=== PATIENT | female | born 1985 | race Two or more races ===

== ENCOUNTER → 2020-10-02 | Emergency (ER) | payer BC, MEDICAID ==
[~2020-10-02] VITALS: Ht 157.5 cm; Wt 90.9 kg
[~2020-10-02] MED LIST: ERYT1OIN6 LEFTEYE; LORA1TAB PO; NO HOME MEDS; erythromycin ophthalmic ointment 1gm tube LEFTEYE ONE; proparacaine 0.5% ophthalmic drops 15ml EACHEYE ONE
[2020-10-02 13:38] VITALS: BP 104/96
== END | disposition home or self-care (01) ==
LOC: ER 10:39
DX: H10.32 Unspecified acute conjunctivitis, left eye (principal); K21.9 Gastro-esophageal reflux disease without esophagitis; Z79.2 Long term (current) use of antibiotics; Z79.899 Other long term (current) drug therapy
CPT/HCPCS: 99283

== ENCOUNTER 2024-05-12 14:28 | Emergency (ER) | payer BC, MEDICAID ==
[~2024-05-12] VITALS: Ht 157.5 cm; Wt 75.0 kg
[~2024-05-12 14:28] MED LIST changes: -ERYT1OIN6 LEFTEYE; -erythromycin ophthalmic ointment 1gm tube LEFTEYE ONE; -proparacaine 0.5% ophthalmic drops 15ml EACHEYE ONE
[2024-05-12 15:23] LABS: BASOPHILS % (AUTO) 0.6 % (0-1); EOSINOPHILS # (AUTO) 0.3 X10'3 (0-0.9); EOSINOPHILS % (AUTO) 5.2 % (0-6); HEMATOCRIT 40.5 % (35.0-45.0); HEMOGLOBIN 13.8 g/dl (12.0-16.0); LYMPHOCYTES # (AUTO) 2.5 X10'3 (1.1-4.8); LYMPHOCYTES % (AUTO) 39.8 % (21-51); MEAN CORPUSCULAR HEMOGLOBIN 30.7 PG (27.0-31.0); MEAN CORPUSCULAR HGB CONC 34.1 g/dL (33.0-36.5); MEAN PLATELET VOLUME 8.3 FL (7.4-10.4); MONOCYTES # (AUTO) 0.4 X10'3 (0-0.9); MONOCYTES % (AUTO) 5.9 % (2-12); NEUTROPHILS # (AUTO) 3.1 X10'3 (1.8-7.7); NEUTROPHILS % (AUTO) 48.5 % (42-75); PLATELET COUNT 249 X10'3 (140-440); RED CELL DISTRIBUTION WIDTH 13.4 % (11.5-14.5); WHITE BLOOD COUNT 6.3 X10'3 (4.5-11.0)
[2024-05-12 15:42] LABS: ALANINE AMINOTRANSFERASE 18 U/L (12-78); ALBUMIN 3.5 G/DL (3.4-5.0); ALBUMIN/GLOBULIN RATIO 0.9 (1.1-1.5); ALKALINE PHOSPHATASE 41 IU/L (46-116); ANION GAP 8 (8-16); ASPARTATE AMINO TRANSFERASE 25 U/L (10-37); BILIRUBIN,TOTAL 0.6 MG/DL (0.1-1.0); BLOOD UREA NITROGEN 14 MG/DL (7-18); CALCIUM 8.5 MG/DL (8.5-10.1); CHLORIDE 105 MMOL/L (99-107); CREATININE 1.08 MG/DL (0.40-0.90); GLUCOSE 139 MG/DL (70-104); LIPASE 76 U/L (16-77); POTASSIUM 3.6 MMOL/L (3.5-5.1); SODIUM 139 MMOL/L (135-145); TOTAL CARBON DIOXIDE 25.9 MMOL/L (24-32); TOTAL PROTEIN 7.6 G/DL (6.4-8.2); eCRCL 54 ML/MIN; eGFR 56 ML/MIN
[2024-05-12] MEDS: morphine 4 MG/ML inj SYRINge IV ONE (19:37)
[2024-05-12] MEDS: ondansetron/PF 4mg/2ml inj IV ONE (19:37)
[2024-05-12] MEDS: normal saline 1000ML IV soln IVB ONE (19:37)
[2024-05-12] MEDS: HYDROcodone/acetaminophen 10/325mg tab PO ONE (19:43)
[2024-05-12] MEDS: ondansetron 4mg rapidly disintigrating tab PO ONE (19:43)
[2024-05-12] MEDS ORDERED: HYDR-3965 PO (19:59)
[2024-05-12 20:39] VITALS: BP 173/98
[2024-05-12] MEDS: LORazepam 0.5 MG tablet PO ONE (20:59)
[2024-05-12 21:17] VITALS: PULSE 92; RESP 15; TEMP 97.7; O2SAT 99
[2024-05-13] MEDS ORDERED: HYDR-3965 PO (10:58)
== END 2024-05-12 21:19 | disposition home or self-care (01) ==
LOC: ER 14:28
DX: R10.11 Right upper quadrant pain (principal); K80.20 Calculus of gallbladder without cholecystitis without obstruction; K21.9 Gastro-esophageal reflux disease without esophagitis
CPT/HCPCS: 36415; 76700; 80053; 83690; 85025; 99284; J7030

== ENCOUNTER 2024-11-19 14:20 | Day surgery (SDC) | payer MEDICAID ==
[2024-11-18 11:08] LABS: MEAN PLATELET VOLUME 8.4 FL (7.4-10.4); PRE OP HEMATOCRIT 43.1 % (35.0-45.0); PRE OP HEMOGLOBIN 15.2 g/dL (12.0-16.0); PRE OP PLATELET COUNT 232 X10'3 (140-440); PRE OP WHITE BLOOD COUNT 6.8 10'3 (4.8-10.8); RED CELL DISTRIBUTION WIDTH 13.9 % (11.5-14.5)
[2024-11-18 11:23] LABS: CREATININE 1.19 MG/DL (0.40-0.90); PRE OP ANION GAP 12 (8-16); PRE OP BILIRUB, TOTAL 0.4 MG/DL (0.0-1.0); PRE OP SODIUM 138 MMOL/L (135-145); TOTAL CARBON DIOXIDE 26.4 MMOL/L (24-32); eGFR 50 ML/MIN
[2024-11-18 11:26] LABS: PRE OP POTASSIUM 4.1 MMOL/L (3.4-5.1)
[2024-11-18 11:29] LABS: PRE OP GLUCOSE 330 MG/DL (70-104)
[2024-11-18 11:35] LABS: PRE OP ALT 13 U/L (30-65); PRE OP AST 16 U/L (10-37)
[~2024-11-19] VITALS: Ht 157.5 cm; Wt 73.8 kg
[2024-11-19] VITALS (12 sets, daily range): BP systolic 110–145; BP diastolic 78–94; PULSE 64–86; RESP 15–19; TEMP 98.1; O2SAT 91–99
[2024-11-19] MEDS: ceFAZolin 2gm/dext,iso 50mL 50 ML IV ONE (05:30)
[~2024-11-19 14:20] MED LIST changes: +BUPR-122 PO; +DULO30CA52 PO; +EMPA10TA PO; +LIDO700A47 TOP; -LORA1TAB PO; -NO HOME MEDS; +ROSU10TA72 PO
[2024-11-19] MEDS: INDOCYANINE GREEN 25 MG/10 ML VIAL IV ONE (14:39)
[2024-11-19] MEDS: ringers solution, lacted 1,000 ML IV SCH (14:40)
[2024-11-19] MEDS ORDERED: insulin regular, human U-100 10ml vial - multi-dose IV ONE (15:10)
[2024-11-19] MEDS: insulin regular, human 10 units/0.1 ml syringe IV ONE (15:26)
[2024-11-19] MEDS ORDERED: fentaNYL/PF 50MCG/1 ML 2ML syringe IV PRN ×2 (15:55)
[2024-11-19] MEDS ORDERED: hydrALAZINE 20mg/ml inj. IV PRN (15:55)
[2024-11-19] MEDS ORDERED: ringers solution, lacted 1,000 ML IV SCH (15:55)
[2024-11-19] MEDS ORDERED: labetalol 20mg/4ml (5mg/ml) syringe IV PRN (15:55)
[2024-11-19] MEDS ORDERED: morphine 4 MG/ML inj SYRINge IV PRN (15:55)
[2024-11-19] MEDS ORDERED: ondansetron/PF 4mg/2ml inj IV PRN (15:55)
--- NOTE | 2024-11-19 16:53 | HISTORY AND PHYSICAL ---
History & Physical Providers to CC ~ History of Present Illness Reason for Admit\Complaint: Getting my gallbladder out History of Present Illness 39-year-old female with a three-month history of chronic epigastric and right upper quadrant abdominal pain, exacerbated by eating. Fatty food intolerance Pain radiating to her right scapula Chronic, constant bloating with nausea She has been to the emergency room and documented as having cholelithiasis She is hoping to schedule urgent surgery Denies any dark urine or marija-colored stool No jaundice Active abdominal pain today Allergies: Coded Allergies: No Known Allergies (Unverified , 10/23/11) Home Medications Home Medications Active Reported Lidocaine 5 % Adh..patch 1 Patch TOP DAILY PRN Jardiance (Empagliflozin) 10 Mg Tablet 1 Tab PO DAILY Rosuvastatin Calcium 10 Mg Tablet 1 Tab PO DAILY Bupropion HCl 100 Mg Tablet 1 Tab PO DAILY Duloxetine HCl 30 Mg Capsule.dr 1 Cap PO DAILY Past Medical History Past Medical History Diabetes Depression/anxiety Hyperlipidemia Past Surgical History Surgical History Comment section ROS ROS Reviewed and negative with the exception of those found in the history of present illness Exam Vitals: Vital Signs Date Time Temp Pulse Resp B/P (MAP) Pulse Ox O2 Delivery O2 Flow Rate FiO2 11/19/24 14:28 98.1 86 16 110/80 (90) 96 11/19/24 14:28 Room Air General: 39-year-old female in mild acute distress HEENT: No scleral icterus or conjunctival injection Neck: Supple and nontender Chest: Lungs are clear to auscultation bilaterally Cardiovascular: Regular rate and rhythm without murmurs Abdomen: Softly distended Epigastric and right upper quadrant abdominal tenderness to palpation Positive Herrera's sign Extremities: Well-perfused without edema Central Nervous System: Grossly intact Musculoskeletal: 5/5 strength in all four extremities Skin: Warm and dry No jaundice Diagnostic Data Last Recorded Lab Results: 11/18/24 1052 11/18/24 1052 Problems: (1) Cholelithiasis without obstruction Status: Acute Assessment & Plan: The risks, benefits, and alternatives to a robotic assisted, laparoscopic possible open cholecystectomy were discussed with the patient. Risks include, but are not limited to, bleeding, infection, injury to intra- abdominal structures, injury to the biliary tree, postoperative bile leak and retained common bile duct stone. Patient verbalized understanding and wishes to proceed with surgery. We will do so today as scheduled Problem Qualifiers (1) Cholelithiasis without obstruction: Cholecystitis acuity: chronic NATHAN VALLE MD Nov 19, 2024 16:53
[2024-11-19] MEDS ORDERED: midazolam 1 mg/ML 2ml injection ONE (17:23)
[2024-11-19] MEDS ORDERED: fentaNYL /PF 50mcg/ml 5ml ampule ONE (17:23)
[2024-11-19] MEDS ORDERED: rocuronium 10mg/ml inj IV ONE ×2 (17:41)
[2024-11-19] MEDS ORDERED: LIDOcaine 2% (20mg/ml) 5ml vial ONE (17:41)
[2024-11-19] MEDS ORDERED: ondansetron/PF 4mg/2ml inj ONE (17:41)
[2024-11-19] MEDS ORDERED: dexamethasone sod phosphate 4mg/ml inj. ONE (17:41)
[2024-11-19] MEDS ORDERED: propofol inj 20 ML IV ONE (17:41)
[2024-11-19] MEDS: LIDOcaine 1% 30ml preserv. free vial IJ ONE ×2 (17:42→17:59)
[2024-11-19] MEDS ORDERED: glycopyrrolate 0.2mg/ml inj ONE (18:13)
--- NOTE | 2024-11-19 18:43 | OPERATIVE REPORT ---
Operative Report Providers to CC CC: ANSELMO VALLE MD ~ Date of Procedure: Nov 19, 2024 Pre-Operative Diagnosis: Symptomatic cholelithiasis, chronic cholecystitis Post-Operative Diagnosis SAME as PRE-Op Procedure Performed Robotic assisted, laparoscopic cholecystectomy Surgeon: Anselmo Valle MD FACS [employer] None Anesthesiologist: Hayder Taylor Type of Anesthesia: General Findings: Distended gallbladder with no evidence of acute cholecystitis Clear visualization of the cystic duct with a critical view of safety confirmed Wound class II Complications None Prosthetics\Implants used: None Estimated Blood Loss: Minimal Specimen Removed: Gallbladder Description of Procedure: Patient was brought to the operating room and identified by the nursing staff and the attending physician. Patient was placed supine and general anesthesia was induced. A supraumbilical, midline incision was made, long enough to accommodate a 12 mm Mann port. Mann technique was used to gain entry into the abdomen. Stay sutures were placed in the Mann port anchored to the fascia. Abdomen was insufflated without incident. Laparoscope was inserted and the abdomen surveyed. Secondary, 8.5 mm robotic trochars were placed in the left upper quadrant and right lateral abdomen. Robotic arm was docked to the patient. Robotic instruments were guided intra- abdominally under laparoscopic visualization. Gallbladder was readily identified. It was quite distended, however, there was contrast noted using firefly. There was no significant edema. Fundus of the gallbladder was grasped and retracted over the dome of the liver. Infundibulum was retracted towards the right lower quadrant. Firefly technology was used to obtain a fluorescent cholangiogram and visualize the pertinent anatomy. Cystic duct was clearly visualized. Peritoneum overlying the triangle was incised with hook electrocautery. This allowed for circumferential dissection of the cystic duct and artery. Critical view of safety was obtained. Duct and artery were then clipped with hemo-lock clips and both structures divided. Gallbladder was retracted laterally and dissected out of the gallbladder fossa. Gallbladder was set aside and fluorescent cholangiogram of the gallbladder fossa was used to confirm no evidence of bile leak. Gallbladder was placed in a laparoscopic retrieval bag. Secondary trochars were removed and the abdomen allowed to deflate. Mann port was removed with the specimen in its retrieval bag. Fascia at the umbilical port site was closed with 0 Vicryl sutures. Skin was closed with 4-0 Monocryl sutures in a subcuticular fashion About 40 cc of local anesthetic was used during the case. Sterile dressings were applied. Patient was awakened and taken to the postanesthesia care unit in stable condition. Counts repoted as correct: Yes ANSELMO VALLE MD Nov 19, 2024 18:43
[2024-11-19] MEDS ORDERED: oxyCODONE/APAP 5-325mg tablet PO PRN (18:45)
[2024-11-19] MEDS ORDERED: LIDOcaine 1% 30ml preserv. free vial ONE (18:45)
[2024-11-19] MEDS ORDERED: BUPIVAcaine/PF 2.5mg/ml (0.25%) 10ml vial ONE (18:45)
== END 2024-11-19 20:35 | disposition home or self-care (01) ==
LOC: PAS 14:20
PROVIDERS: ATTEND Surgery
DX: K80.10 Calculus of gallbladder with chronic cholecystitis without obstruction (principal); E11.9 Type 2 diabetes mellitus without complications; E78.5 Hyperlipidemia, unspecified; F41.9 Anxiety disorder, unspecified; F32.A Depression, unspecified; Z87.891 Personal history of nicotine dependence; Z79.899 Other long term (current) drug therapy; Z98.51 Tubal ligation status; Z98.891 History of uterine scar from previous surgery
CPT/HCPCS: 36415; 47563; 80053; 82948; 85025; J0690; J1100; J1200; J1815; J2003; J2250; J2405; J2704; J2710; J3010; J3490; J7030; J7120; S2900; Z7506; Z7508; Z7512; A4215; A4618; A7000